=== PATIENT | female | born 1975 | race Caucasian/White ===

== ENCOUNTER 2025-06-17 03:03 | Emergency (ER) | payer OTHER, SELFPAY ==
[2025-06-17] VITALS (36 sets, daily range): BP systolic 104–144; BP diastolic 42–70; PULSE 61–86; RESP 12–22; TEMP 36.5; O2SAT 90–100
--- NOTE | 2025-06-17 02:45 | RT.EKG_ITS ---
APPROVED REPORT Exam: Resting ECG Reason for Exam: seizure? Patient Location: E HR:69 bpm ECG Measurements Heart Rate 69 AXIS DE 163 P 55 QRSd 92 QRS -13 QT 404 T 51 QTc 433 Conclusion Sinus rhythm...normal P axis, V-rate 60- 99 Normal Electrocardiogram
--- NOTE | 2025-06-17 02:57 | ED.GENADUL_ITS ---
Discharge Plan Disposition Patient Disposition: Transfer-Acute Inpatient Care Specific Acute Inpt Facility: [facility] Condition: Stable Discharge Details Clinical Impression: New onset seizure, Abnormal CT of the head Primary Care Provider: Unknown,Unknown ED Provider: Matthew Macias Home Meds and New Rx's Prescriptions: No Action No Known Home Meds HPI General Mode of arrival: EMS . Date/Time Provider Initiated Documentation: 06/17/25 03:09 . Limitations to Documentation: no limitations . Information obtained by: patient, EMS and RN notes reviewed . HPI Narrative: Patient presents to ED by ambulance after woke up and found her in bed gurgling and bleeding from the mouth. They had gone to bed about 10 PM. awoke like movements but by EMS report did not witness seizure activity. However, she was minimally responsive with blood in her mouth and had been incarcerated of urine. She arrives here to the ED awake and alert is at baseline. She has no recollection of the event nor is she really remember going to bed. She has no history of seizures. She has been having frontal headaches which are relatively new for her. She has not noticed any visual change or neurologic change. She has not been ill. She has history of hypothyroidism. Currently has some nausea. Related Data Home Medications ?Medication ?Instructions ?Recorded ?Confirmed Unknown [No Known Home Meds] 06/17/25 1 08/17/24 Allergies Allergy/AdvReac Type Severity Reaction Status Date / Time cefaclor (From [facility]) Allergy Intermediate rash Verified 06/17/25 03:12 Exam Narrative Exam Narrative: Const: WDWN female in NAD. VS per triage. HEENT: NC/AT. Normal facial exam. Tongue bruising and superficial lacerations to the tip and right anterior side. Eyes: PERRL and EOMI. VF in tact to confrontation. Neck: Supple. Trachea midline. Lungs: Normal respiratory effort. Lungs are clear. Cor: RRR without murmur. Good radial pulses. GI: Soft/ND/NT. Neuro: A+O x 3. Normal speech, mentation. Cranial nerves II - XII grossly intact. No gross motor or sensory deficit. Ext: No C/C/E. Medical Decision Making Patient presenting to the ED after her woke up and found her altered and minimally responsive with blood coming from her mouth and urinary incontinence. Arrives here awake and alert and back to baseline. She has no history of seizures. She has been having frontal headaches enough so that she has been taking allergy medicine and checking her blood pressures. She has not noticed any neurologic change otherwise. She has no vision change. felt movement in the bed but thought it was the dog. Did not witness seizure-like activity. Blood sugar was normal in the field. She is neurologically intact for me. IV is in place by EMS. Will obtain laboratory studies, CT head, EKG, urine to initiate seizure workup. Teleneurology consult requested. 05:15 - Patient remains neurologically intact and hemodynamically stable. She has had no further seizures. Laboratory studies are really fairly unremarkable. Potassium is a little low at 3.3. Her TSH is elevated but her free T4 is normal. No evidence of UTI. White count, kidney function, liver function all normal. CT scan per my read suggest mass with edema in the left frontal lobe with midline shift present. Discussed directly with radiology who agrees although does think possibility of an isodense bleed could give the same potential presentation. Given the patient's new headaches I suspect this is more likely mass. is also stating that she has been off and forgetful over the last month or so as well. Patient has still not been seen by neurology. I will initiate transfer to higher level of care. I am going to load her with IV Keppra for seizure prevention and to give 10 mg Decadron for the edema. I have placed a call to [facility] to speak with neurosurgery. 6:00 - Spoke with Dr. Lauren, neurosurgery at [facility]. Agrees with assessment and covering with Keprra and Decadron. Accepted in transfer to ICU under his service. Will need ALS/medic level of care on urgent basis. Patient and family updated on plan. Patient consented for transfer. Imaging Data Radiologic Study: Attestation: I personally reviewed and interpreted this imaging study as follows: Imaging: CT Scan My impression: see [facility] Lab Data Lab results reviewed: Yes I reviewed the patient's lab results. Lab results narrative: see [facility] ECG Data Attestation: I personally reviewed and interpreted this ECG (s) as follows: Prior ECG tracings: not available for review Interpretation: Normal EKG Critical Care Time Critical Care Time Critical Care Time: Yes Total Critical Care Time: 50 Attestation: Upon my evaluation, this patient had a high probability of imminent or life- threatening deterioration, which required my direct attention, intervention, and personal management. I have personally provided 50 minutes of critical care time exclusive of time spent on separately billable procedures. Time includes monitoring for potential decompensation, ordering of tests and medications, review of laboratory and radiology results, discussion with consultants and documentation. Interventions were performed as documented above in procedures. PFSH All Active Problems (Updated 06/17/25 @ 06:07 by Matthew Macias MD) Abnormal CT of the head (Acute) New onset seizure (Acute) Medical History (Updated 06/17/25 @ 06:07 by Matthew Macias MD) Hypothyroid Surgical History (Updated 06/17/25 @ 03:28 by Matthew Macias MD) H/O arthroscopy of knee S/P cholecystectomy Social History Smoking/Tobacco Use Status: Never Smoking risk assessment performed?: Yes Alcohol Intake: current Alcohol Intake frequency: holidays/special occasions only Drug use: Daily Substance use type: marijuana Housing: house Do you feel safe at home: Yes Do you feel safe in your relationship?: Yes
[2025-06-17 03:27] LABS: Abs Immature Grans 0.04 10^3/uL (0.0-0.06); HCT 42.1 % (36.0-46.0); HGB 14.0 g/dL (11.2-15.7); Immature Grans % 0.4 %; MCH 29.0 pg (27.0-33.0); MCHC 33.3 % (32.0-36.0); MCV 87 fL (80-95); MPV 11.4 fL (8.0-11.0); Platelet Count 165 10^3/uL (130-400); RBC 4.82 10^6/uL (3.93-5.22); RDW 12.1 % (11.7-14.6); RDW-SD 39.1 fL; WBC 9.66 10^3/uL (4.4-10.8)
[2025-06-17 03:38] LABS: Glucose Negative (Negative)
--- NOTE | 2025-06-17 03:41 | DI.CT_ITS ---
Exam(s) CT HEAD WO EXAM: CT HEAD WO CLINICAL HISTORY: new onset seizure. TECHNIQUE: Imaging Protocol: Axial computed tomography images with coronal and sagittal reformatted images were created and reviewed COMPARISON: No exams were available for comparison FINDINGS: Ventricles and Extra Axial Spaces: There is a masslike area overlying the left frontal parietal lobe measuring at least 6.4 AP by 3.1 craniocaudad cm (series 5, image 25). It is isodense to the tyson matter. There is a mass effect on the adjacent parenchyma with effacement of the adjacent sulci. There is also resultant left to right midline shift of 6 mm. Hemorrhage: Please see the above discussion under Ventricles and Extra-axial Spaces. Cerebral parenchyma: Please see the above discussion under Ventricles and Extra- axial Spaces. There is a subtle area of decreased attenuation in the white matter in the left frontal and parietal lobes inferior to the above masslike above described masslike area. Midline shift: [id number] midline shift of 6 mm. Brainstem/Cerebellum: Normal. Calvarium: Normal. Visualized Paranasal sinuses/Mastoids: Clear. Soft Tissues: Unremarkable. IMPRESSION: 1. 6.4 x 3.1 cm isodense masslike area overlying the left frontal and parietal lobes. This may represent an extra-axial mass or hematoma. An intraparenchymal mass cannot be entirely excluded. Further evaluation with an MRI without and with contrast is recommended. CT scan with contrast may also be considered. 2. 6 mm ihru-qx-bggte midline shift. 3. The preliminary [facility] report was reviewed. RADIATION DOSE DELIVERED: 828.01mGy.cm Total DLP DATA REPOSITORY: All CT scans at this facility are submitted to the National Radiology Data Registry (NRDR) Dose Index Registry (DIR) with the [employer] ([employer]). RADIATION OPTIMIZATION: All CT scans at this facility use at least one of these dose optimization techniques: automated exposure control; mA and/or kV adjustment per patient size (includes targeted exams where dose is matched to clinical indication); or iterative reconstruction.
[2025-06-17 03:44] LABS: Magnesium 1.8 mg/dL (1.6-2.6)
[2025-06-17 03:44] LABS: C & S Indicated? No; RBC 0-2 HPF (0-2); WBC 0-2 HPF (0-5)
[2025-06-17 03:45] LABS: ALT 15 U/L (10-49); AST 21 U/L (<34); Albumin 4.3 g/dL (3.2-5.0); Alkaline Phosphatase 90 U/L (46-116); Anion Gap 0.4 mmol/L (3-11); BUN 15 mg/dL (9-23); Bilirubin, Total 0.30 mg/dL (0.2-1.2); CO2 29.6 mmol/L (20.0-31.0); Calcium 9.3 mg/dL (8.3-10.6); Chloride 109 mmol/L (98-107); Glucose 100 mg/dL (74-106); Potassium 3.3 mmol/L (3.5-5.1); Sodium 139 mmol/L (136-145); Total Protein 6.8 g/dL (5.7-8.2)
[2025-06-17 03:48] LABS: Cannabinoids THC Positive (Negative)
[2025-06-17 03:48] LABS: TSH (W/Ref FT4) 20.72 uIU/mL (0.55-4.78)
--- NOTE | 2025-06-17 05:00 | DI.[facility]_ITS ---
PROCEDURE INFORMATION: Exam: CT Head Without Contrast Exam date and time: 06/17/2025 3:27 AM Age: 50 years old Clinical indication: Other: New onset seizure TECHNIQUE: Imaging protocol: Computed tomography of the head without contrast. Radiation optimization: All CT scans at this facility use at least one of these dose optimization techniques: automated exposure control; mA and/or kV adjustment per patient size (includes targeted exams where dose is matched to clinical indication); or iterative reconstruction. COMPARISON: No relevant prior studies available. FINDINGS: Brain: Extra-axial mass versus acute extra-axial hematoma overlying the left frontal lobe resulting in 5 mm of [id number]-[id number] midline shift. There is effacement of the sulci in the anterior left frontal lobe. Cerebral ventricles: No ventriculomegaly. Paranasal sinuses: Visualized sinuses are unremarkable. No fluid levels. Mastoid air cells: Visualized mastoid air cells are well aerated. Bones: Unremarkable. No acute fracture. Soft tissues: Unremarkable. IMPRESSION: Extra-axial mass versus hematoma overlying the left frontal lobe resulting in 5 mm of iyed-si-kzxxe midline shift. Recommend 4-6 hour follow-up CT versus MRI with and without contrast for further characterization. COMMENT: THIS REPORT CONTAINS FINDINGS THAT MAY BE CRITICAL TO PATIENT CARE. The exam findings were verbally communicated by me to JOHNATHAN CARVALHO via telephone conference at 4:56 AM EST on 06/17/2025. The findings were acknowledged and understood. Dictated and Authenticated by: Viviane Avila MD. Orderin Gilberto Castro MD
[2025-06-17] MEDS: Dexamethasone 10 MG/ML VIAL IVP (05:10)
[2025-06-17] MEDS: levETIRAcetam 1,000 MG in Normal Saline 100 ML 400 MG IVPB (05:15)
== END 2025-06-17 07:26 | disposition short-term general hospital (02) ==
PROVIDERS: Emergency Provider Emergency Medicine
DX: R56.9 Unspecified convulsions (principal); R93.0 Abnormal findings on diagnostic imaging of skull and head, not elsewhere classified
CPT/HCPCS: 80053; 80307; 81025; 93005; 96365; 96375; 99291; 70450; 81003; 81015; 83735; 84439; 84443; 85025; 93010; J1100; J1953